=== PATIENT | female | born 2005 | race Caucasian/White ===

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

== ENCOUNTER 2024-02-17 12:58 | Emergency (ER) | payer OTHER, BC, SELFPAY ==
[2024-02-17 13:21] VITALS: BP 107/64; PULSE 95; RESP 16; TEMP 37.1; O2SAT 100
--- NOTE | 2024-02-17 13:26 | ED.URI ---
HPI - URI/Sore Throat General Chief Complaint: Upper Respiratory Infection Stated Complaint: SORE THROAT Source: patient and RN notes reviewed Mode of arrival: ambulatory Limitations: no limitations History of Present Illness HPI Narrative: Patient is a 18-year-old female who presents to the [facility] with complaints of sore throat starting yesterday. Patient states that her sore throat worsened last night. She denies associated headache, cough, fever. She reports frequent strep infections in the past. patient states that she is currently 25 weeks with her 3rd . She has history stillbirth a miscarriage. She denies any related complaints at this time. Denies vaginal bleeding or abdominal pain. Related Data Home Medications Medication Instructions Recorded Confirmed ondansetron HCl 4 mg tablet mg 11/27/23 02/13/24 progesterone micronized 200 mg mg 11/27/23 02/13/24 capsule Allergies Allergy/AdvReac Type Severity Reaction Status Date / Time No Known Allergies Allergy Verified 02/13/24 12:55 Review of Systems Review of Systems: CONSTITUTIONAL: Denies fever, chills, or sweats. EYES: Denies visual changes, redness, or discharge. ENT: Denies otalgia. Reports sore throat. CARDIOVASCULAR: Denies chest pain, palpitations, or edema. RESPIRATORY: Denies cough or dyspnea. GASTROINTESTINAL: Denies abdominal pain, nausea, vomiting, or diarrhea. GENITOURINARY: Denies dysuria or hematuria. SKIN: Denies rash or itching. MUSCULOSKELETAL: Denies back pain, joint pain, or myalgia. NEUROLOGIC: Denies headache, numbness, or weakness. Pertinent positives per HPI. ON LICENSE OF [facility] Past Medical History Medical History COVID-19 2020 History of stillbirth March 2022 Strep throat UTI (urinary tract infection) Surgical History Surgical History H/O dilation and curettage Family History Family History Mother Asthma Heart disease Grandparent Diabetes mellitus Hypertension Other No pertinent family history Social History Social History Smoking status: Former smoker Tobacco type: e-cigarettes/vaping Smoking end date: 04/02/23 Alcohol intake: never Substance use: former Substance use type: marijuana Last use: 04/21 Do You Feel Safe in your Home?: Yes Lack of Transportation: No Lack of Food: Never True Current Housing: I Have Housing Concerned About Future Housing: No Difficulty Paying Gas/Electric Bills: No Difficulty Paying for Meds: No Currently Unemployed: No Education: Don't Know Living arrangements: with family Occupation/Education: occupation 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 There is no relevant family history pertinent to the patient complaint. Exam Narrative: GENERAL: This is a well-nourished, well-developed patient, in no apparent distress. HEAD: normocephalic, atraumatic. EYES: Sclera clear/white. Vision is grossly intact. EARS: External ears normal. Hearing grossly intact. NOSE: External nose normal with no obvious nasal discharge, nares without redness, no rhinorrhea. THROAT: Mucous membranes moist. Oropharyngeal erythema without exudate or ulceration. NECK: Neck supple, non-tender without lymphadenopathy, masses or thyromegaly. CARDIOVASCULAR: Regular rate and rhythm without murmurs, gallops, or rubs. RESPIRATORY: Clear to auscultation. Breath sounds equal bilaterally. No wheezes, rales, or rhonchi. GASTROINTESTINAL: Abdomen soft, non-tender, nondistended. Bowel sounds are act
[2024-02-17 13:44] LABS: EDSTREPNEGPOS1 Negative
== END 2024-02-17 13:35 | disposition home or self-care (01) ==
PROVIDERS: Emergency Provider Nurse Practitioner; PCP Nurse Practitioner Family
DX: O99.512 Diseases of the respiratory system complicating pregnancy, second trimester (principal); Z3A.25 25 weeks gestation of pregnancy; J02.8 Acute pharyngitis due to other specified organisms; Z86.16 Personal history of COVID-19; Z87.891 Personal history of nicotine dependence
CPT/HCPCS: 87081; 87880; 99213; G0463

== ENCOUNTER 2024-05-25 08:39 | Inpatient (IN) | payer OTHER, SELFPAY ==
[2024-05-25] VITALS (188 sets, daily range): BP systolic 64–131; BP diastolic 33–105; PULSE 64–130; RESP 16; TEMP 36.6–36.8; O2SAT 83–100; BMI 30.4
[2024-05-25 09:18] LABS: Basophils Absolute Auto 0.1 K/mm3 (0.0-0.1); Basophils Percent Auto 0.5 % (0.2-1.2); Eosinophils Absolute Auto 0.1 K/mm3 (0-0.3); Eosinophils Percent Auto 0.7 % (0-4.4); Hematocrit 32.2 % (37.0-47.0); Hemoglobin 10.3 g/dL (12.0-15.0); Immature Granulocyte Absolute 0.12 K/mm3 (0.00-0.031); Immature Granulocyte Percent A 1.1 % (0-0.5); Lymphocytes Absolute Auto 2.03 K/mm3 (0.9-3.2); Lymphocytes Percent Auto 19.1 % (18.3-44.2); Mean Corpuscular Hemoglobin 25.8 pg (26-34); Mean Corpuscular Volume 80.5 fl (80-100); Mean Platelet Volume 12.2 fl (7.4-10.4); Monocytes Absolute Auto 0.7 K/mm3 (0.1-0.6); Monocytes Percent Auto 6.6 % (2.6-8.5); Neutrophils Absolute Auto 7.7 K/mm3 (1.3-6.7); Platelet Count Result 231 k/mm3 (150-375); Red Cell Distribution Width 16.1 % (11.5-14.5); White Blood Count 10.6 K/mm3 (4.5-10.0)
--- NOTE | 2024-05-25 09:23 | PM.IMHP ---
H&P: HPI History of Present Illness Date/Time: 05/25/24 09:23 Chief Complaint: Term previous intrauterine demise Narrative: this is a 18 old 3 para 0 1 1 0 whose last menstrual period was 07/25/2023, EDC is 06/01/2024, presents at 39 weeks gestation for induction of labor secondary to history of demise. She is negative for group B strep. Her last ultrasound at 37 weeks showed 8lb vertex presentation. Review of Systems Review of Systems: CONSTITUTIONAL: Denies fever, chills, or sweats. EYES: Denies visual changes, redness, or discharge. ENT: Denies otalgia. Reports sore throat. CARDIOVASCULAR: Denies chest pain, palpitations, or edema. RESPIRATORY: Denies cough or dyspnea. GASTROINTESTINAL: Denies abdominal pain, nausea, vomiting, or diarrhea. GENITOURINARY: Denies dysuria or hematuria. SKIN: Denies rash or itching. MUSCULOSKELETAL: Denies back pain, joint pain, or myalgia. NEUROLOGIC: Denies headache, numbness, or weakness. Pertinent positives per HPI. [facility] Past Medical History Medical History COVID-2020 History of stillbirth March 2022 Strep throat UTI (urinary tract infection) Surgical History Surgical History H/O dilation and curettage Family History Family History Mother Asthma Heart disease Grandparent Diabetes mellitus Hypertension Other No pertinent family history Social History Social History Smoking status: Former smoker Tobacco type: e-cigarettes/vaping Smoking end date: 04/02/23 Alcohol intake: never Substance use: never Substance use type: marijuana Last use: 04/21 Do You Feel Safe in your Home?: Yes Lack of Transportation: No Lack of Food: Never True Current Housing: I Have Housing Concerned About Future Housing: No Difficulty Paying Gas/Electric Bills: No Difficulty Paying for Meds: No Currently Unemployed: No Education: Don't Know Living arrangements: with family Occupation/Education: occupation 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 Agree to blood products: Yes Meds Home Medications and Allergies Home Medications Medication Instructions Recorded Confirmed Type vits no.126-ferrous fum 1 tablet PO DAILY 05/24/24 05/25/24 History 28 mg iron-folic acid 800 mcg tablet (Classic ) progesterone micronized 200 mg 200 mg PO DAILY 05/24/24 05/25/24 History capsule Allergies Allergy/AdvReac Type Severity Reaction Status Date / Time No Known Allergies Allergy Verified 05/24/24 14:33 Vital Signs Vital Signs - 24 hr 05/25/24 09:17 05/25/24 09:18 05/25/24 09:22 Pulse Rate 102 H Blood Pressure 114/67 Pulse Oximetry 100 100 05/25/24 09:22 Pulse Rate 102 H Blood Pressure 114/67 Pulse Oximetry Exam Const: General: cooperative, healthy appearing and comfortable Nutritional Appearance: average body habitus Orientation/consciousness: oriented to person, oriented to place and oriented to time Resp: Effort & Inspection: normal respiratory effort Cardio: Rate: regular rate Rhythm: regular rhythm Heart sounds: S1 normal heart sound present and S2 normal heart sound present GI: Inspection: normal to inspection ( Gravid soft uterus) : External Female Exam: normal external appearance Speculum Exam - Vagina: normal appearance of the vagina Speculum Exam - Cervix: normal appearance of the cervix ( cervix 2/50/2. Attempted AROM no fluid seen. heart tones reassurin) H&P: Results Labs Labs: Short CBC 05/25/24 Range/Units 08:58 WBC 10.6 H (4.5-10.0) K/mm3 Hgb 10.3 L (12.0-15.0) g/dL Hct 32.2 L (37.0-47.0) % Plt Count 231 (150-375) k/mm3 Assessment and Plan Assessment and plan (1) Term : Code(s): Z34.90 - Encounter for supervision of normal , unspecified, unspecified trimester Status: Acute Assessment and Plan: medical induction of labor. Spontaneous vaginal delivery is expected. She is an epidural candidate
--- NOTE | 2024-05-25 09:25 | LDADM ---
This patient, Lottie Peterson, was admitted to Labor/Delivery 102 on 05/25/24 at 08:39. Plans for labor, pain management and were discussed with patient. Patient/family oriented to hospital policies and general routines including ID bracelet, bed and alarms, visiting hours, pain management, procedures, bathroom and other care routines, personal items, smoking policy, room service/diet and guest tray routines, infant security routines, and visiting hours. Patient/Family are encouraged to report perceived risks to care and to ask questions if they do not understand what they are told or what they should do. See OBIX for further documentation.
[2024-05-25] MEDS: LACTATED RINGERS 1,000 ML 125 ML IV CONT ×4 (09:40→23:06)
[2024-05-25] MEDS: OXYTOCIN 30 UNITS/NS 500 ML 30 UNITS/500 ML BAG IV CONT (09:40)
[2024-05-25 10:07] LABS: HIV 1/2 Ab P24 Ag Result Negative (Negative)
[2024-05-25 10:51] LABS: Rapid Plasma Reagin Non-Reactive (NonReactive)
--- NOTE | 2024-05-25 15:09 | WPDANESEPPF ---
Anes - Initial Pre Proc Eval Procedure: labor epidural Date/Time: 05/25/24 15:09 Surgeon: Ivan Maldonado MD Pre Op Diagnosis: labor pain Pre Op Diagnosis: Induction of Labor Patient Data Age: 18 Gender: F Height: 1.6 m Weight: 78 kg Last Vital Signs Temp 36.8 C 05/25/24 14:30 Pulse 86 05/25/24 15:05 BP 97/52 L 05/25/24 15:05 Pulse Ox 99 05/25/24 15:06 O2 Del Method Room Air 05/25/24 09:23 Allergies Allergy/AdvReac Type Severity Reaction Status Date / Time No Known Allergies Allergy Verified 05/24/24 14:33 Home Medications Medication Instructions Recorded Confirmed Type vits no.126-ferrous fum 1 tablet PO DAILY 05/24/24 05/25/24 History 28 mg iron-folic acid 800 mcg tablet (Classic ) progesterone micronized 200 mg 200 mg PO DAILY 05/24/24 05/25/24 History capsule Laboratory Tests 05/25/24 08:58 WBC 10.6 H K/mm3 (4.5-10.0) RBC 4.00 L M/mm3 (4.2-5.4) Hgb 10.3 L g/dL (12.0-15.0) Hct 32.2 L % (37.0-47.0) MCV 80.5 fl (80-100) MCH 25.8 L pg (26-34) MCHC 32.0 g/dl (32-36) RDW 16.1 H % (11.5-14.5) Plt Count 231 k/mm3 (150-375) MPV 12.2 H fl (7.4-10.4) Immature Gran % (Auto) 1.1 H % (0-0.5) Neut % (Auto) 72.0 % (45.5-73.1) Lymph % (Auto) 19.1 % (18.3-44.2) [place] % (Auto) 6.6 % (2.6-8.5) Eos % (Auto) 0.7 % (0-4.4) Baso % (Auto) 0.5 % (0.2-1.2) Lymph # (Auto) 2.03 K/mm3 (0.9-3.2) [place] # (Auto) 0.7 H K/mm3 (0.1-0.6) Eos # (Auto) 0.1 K/mm3 (0-0.3) Baso # (Auto) 0.1 K/mm3 (0.0-0.1) Abs Immat Gran (auto) 0.12 H K/mm3 (0.00-0.031) Absolute Neuts (auto) 7.7 H K/mm3 (1.3-6.7) Absolute Nucleated RBC 0.000 K/mm3 (0.0-0.012) Nucleated RBC % 0.0 % (0.0-0.2) RPR Non-reactive (NonReactive) HIV 1&2 Ab/P24 Ag 4thGn Negative (Negative) Blood Type O Positive Antibody Screen Negative Patient hx anesthesia problems: none Family hx anesthesia problems: none Results Review: All pre-operative results and documents have been reviewed as part of the pre-operative evaluation. [facility] Past Medical History Medical History COVID-2020 History of stillbirth March 2022 Strep throat UTI (urinary tract infection) Surgical History Surgical History H/O dilation and curettage Family History Family History Mother Asthma Heart disease Grandparent Diabetes mellitus Hypertension Other No pertinent family history Social History Social History Smoking status: Never smoker Tobacco type: e-cigarettes/vaping Smoking end date: 04/02/23 Alcohol intake: never Substance use: never Substance use type: marijuana Last use: 04/21 Do You Feel Safe in your Home?: Yes Lack of Transportation: No Lack of Food: Never True Current Housing: I Have Housing Concerned About Future Housing: No Difficulty Paying Gas/Electric Bills: No Difficulty Paying for Meds: No Currently Unemployed: No Education: High School Diploma/GED Difficulty w/ Childcare or Family Care: No Living arrangements: with family Occupation/Education: occupation Additional occupation/education comments: Teacher at [employer] Spiritual care concerns: No Agree to blood products: Yes Anes - Eval Final PreProcedure Day of Procedure 05/25/24 15:09 Patient weight: obese ASA classification: II Anesthetic plan: proceed Anesthesia type and monitoring: regional epidural and standard monitoring Results Review: All pre-operative results and documents have been reviewed as part of the pre-operative evaluation. Informed Consent: The patient's anesthetic plan and its attendant risks and benefits were discussed with the patient/family/POA. Questions were solicited and answers provided to the satisfaction of the patient/family/POA.
[2024-05-25] MEDS: ONDANSETRON INJ 4 MG/2 ML VIAL IV PUSH (17:12)
[2024-05-26] VITALS (28 sets, daily range): BP systolic 102–156; BP diastolic 40–113; PULSE 80–174; RESP 14–18; TEMP 36.7–37.2; O2SAT 97–100
--- NOTE | 2024-05-26 00:33 | PM.OBPRVD ---
OB - Vaginal Delivery Note Procedure Delivery date: 05/26/24 Events: Elective Induction of Labor Induction method: AROM Delivery augmentation: Pitocin Delivery monitor: Internal FHT and Internal Uterine Route of delivery: Episiotomy description: None Laceration Description: None Quantitative Blood Loss (ml): 61 Anesthesia type: Epidural Disposition: Floor Complications: No immediate complications Narrative: The patient was admitted for induction of labor. Artificial rupture membranes performed she had IUPC placed and required amnio infusion secondary to recurrent variables. When she was complete she pushed delivered the head spontaneously in the SLAVA position nuchal cord checked was noted be loose x1 around the occiput anterior posterior shoulder delivered spontaneously cord was noted to be wrapped around the right leg and ankle and this was relieved. Cord clamped x2 cut passed off the warmer given Apgars of 8 and 9 at 1 and 5minutes respectively. Twenty-two Pitocin placed IV after the placenta spontaneously delivered. The vagina was inspected noted be free of tears or lacerations blood loss estimated 61cc. All sponge, needle, instrument counts were correct. [place] Baby Date of : 05/26/24 Time of : 00:21 gender: Male presentation: vertex position: Right Occiput Anterior Placenta delivery description: Spontaneous Cord Vessel Description: 3 Vessels, Nuchal Cord, Loose and Reduced score one minute: 8 score five minutes: 9
--- NOTE | 2024-05-26 00:37 | P.DS_ITS ---
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 She remained afebrile. She was up, voiding without difficulty, eating regular diet, ambulating, and generally without complaints. Time Spent with Patient Time attestation: Total time spent providing and/or coordinating discharge services: Exam Const: General: cooperative, healthy appearing and comfortable Nutritional Appearance: average body habitus Orientation/consciousness: oriented to person, oriented to place and oriented to time HENMT: Head: normal to inspection Resp: Effort & Inspection: normal respiratory effort Cardio: Rate: regular rate Rhythm: regular rhythm Heart sounds: S1 normal heart sound present and S2 normal heart sound present GI: Inspection: normal to inspection ( Fundus firm below the umbilicus) DS: Data Data Completed and Pending Labs on day of discharge: Labs from last 24 hours 05/25/24 08:58 WBC 10.6 H RBC 4.00 L Hgb 10.3 L Hct 32.2 L MCV 80.5 MCH 25.8 L MCHC 32.0 RDW 16.1 H Plt Count 231 MPV 12.2 H Immature Gran % (Auto) 1.1 H Neut % (Auto) 72.0 Lymph % (Auto) 19.1 [place] % (Auto) 6.6 Eos % (Auto) 0.7 Baso % (Auto) 0.5 Lymph # (Auto) 2.03 [place] # (Auto) 0.7 H Eos # (Auto) 0.1 Baso # (Auto) 0.1 Abs Immat Gran (auto) 0.12 H Absolute Neuts (auto) 7.7 H Absolute Nucleated RBC 0.000 Nucleated RBC % 0.0 RPR Non-reactive HIV 1&2 Ab/P24 Ag 4thGn Negative Blood Type O Positive Antibody Screen Negative Discharge Plan Discharge Attending physician on discharge: Ivan Bonilla Discharging Clinician: Ivan Bonilla Patient Disposition: Home, Self-Care Activity: may shower, no straining and pelvic rest Diet: heart healthy Wound Care Instructions: follow printed instructions Discharge Instructions: Education: Mom and Baby Guide Given to: Mother Follow-Up: Call your delivering provider's office for an appointment to be seen in: 4-6 weeks Mom and baby should come to the [facility] for the follow-up appointment. Appointment Date/Time: May 29, 2024 at 9:00 am What to expect at your follow-up visit: Physical Assessment Call [phone] if you are unable to keep your appointment time. BREAST CARE: * Wear a snug supportive bra. * For engorgement discomfort: Breast Feeding: * Apply warm moist washcloths * Express milk as needed to relieve engorgement * Wear loose clothing Bottle Feeding: * May apply ice packs * For sore nipples: * Identify correct latch-on * Apply warm moist washcloths before and after nursing * Air dry nipples after nursing * May apply Lansinoh cream to nipples EPISIOTOMY/PERINEAL CARE: * Until bleeding stops, use your anais bottle after urinating * Change your pad frequently throughout the day * You may take sitz baths several times a day (fill your bathtub with warm water and soak for 20 minutes.) Do NOT bathe in the water * No tub baths until seen by your physician - You may shower ACTIVITY: * Rest as much as possible. * Do not exercise or lift anything heavier than your baby (such as laundry or other children.) * Avoid stairs or driving as much as possible. * Do not put anything into the vagina. No douching, tampons, or sexual activity until seen by physician. NOTIFY PHYSICIAN IF YOU HAVE ANY QUESTIONS OR IF ANY OF THE FOLLOWING SYMPTOMS OCCUR: * If your vaginal area becomes red, swollen, or more painful than what you have experienced in the hospital. * If your vaginal bleeding becomes foul smelling. * If your vaginal bleeding becomes more heavy than a period or if your bleeding changes from pink to bright red. However, you may pass an occasional walnut- sized clot once or twice for the first week . * If you experience a sharp, shooting pain in you calves. * If you discover a hard, reddened area on your breast or if you experience flu- like symptoms. DIET: * Eat regular, well-balanced meals. * Drink plenty of fluids daily. If , drink to thirst. Stand Alone Forms: General Discharge Information Follow-up/Referrals: Ivan Bonilla MD [Physician] - Discharge Medications: Continued progesterone micronized 200 mg capsule 200 mg PO DAILY Discontinued Classic 28 mg iron- 800 mcg Tablet 1 tablet PO DAILY Date of admission: 05/25/24 08:39 Primary Care Provider: UNKNOWN,DOCTOR Admitting Provider: Ivan Bonilla Attending physician on admission: Ivan Bonilla Condition: Stable
[2024-05-26] MEDS: OXYTOCIN 30 UNITS/NS 500 ML 30 UNITS/500 ML BAG 125 UNITS IV CONT (01:00)
[2024-05-26] MEDS: WITCH HAZEL 40 PADS 1 PAD TOPICAL (02:33)
[2024-05-26] MEDS: ACETAMINOPHEN 325 MG TABLET 650 MG PO (02:33)
[2024-05-26] MEDS: BENZOCAINE 20% AER SPR (*SP) 56 GM CAN 1 SPRAY TOPICAL (02:33)
[2024-05-26] MEDS: IBUPROFEN 600 MG TABLET PO ×2 (02:34→18:46)
[2024-05-26] MEDS: DOCUSATE SODIUM 100 MG CAPSULE PO ×2 (02:34→09:11)
--- NOTE | 2024-05-26 02:55 | OBPPTRN ---
Patient transferred to post room #288 via wheelchair. Support person present. Oriented to unit, room, information board, rooming in, admission packet and security measures. Patient verbalizes understanding.
[2024-05-26] MEDS: POLYSACCHARIDE IRON COMPLEX 150 MG CAPSULE PO (09:11)
[2024-05-26] MEDS: MULTIVIT/MIN/PREN/FOL AC/IRON TABLET 1 TAB PO (09:11)
[2024-05-27] MEDS: IBUPROFEN 600 MG TABLET PO ×2 (00:14→06:10)
[2024-05-27] MEDS: ACETAMINOPHEN 325 MG TABLET 650 MG PO ×2 (00:14→06:10)
--- NOTE | 2024-05-27 00:21 | PC.NURSE ---
224- Pt states that she prefers to bottle fed infant, states is not for me, my sisters can do it for their babies. Offered benefits of BF and bottle feeding, however pt prefers formula at this time. Similac bottles and nipples given, instructions for feedings as well
[2024-05-27 05:14] LABS: Hematocrit 26.2 % (37.0-47.0)
--- NOTE | 2024-05-27 05:49 | PM.OBPNVD ---
OB - PN: Subj Subjective Date/time seen: 05/27/24 05:49 Patient comments: no complaints and pain well controlled baby status: doing well OB - PN: Obj Data Labs 05/27/24 04:35 Labs: Laboratory Results - last 24 hr 05/27/24 04:35 Hgb 8.0 L Hct 26.2 L OB - PN A/P Plan day: 1 Plan: routine care Time Spent With Patient Time: Total time spent is greater than 50% in coordination of care (as documented) at patient's floor/unit and/or counseling patient: Time with patient: less than 15 minutes Exam Const: General: cooperative, healthy appearing and comfortable Nutritional Appearance: average body habitus Orientation/consciousness: oriented to person, oriented to place and oriented to time Resp: Effort & Inspection: normal respiratory effort Cardio: Rate: regular rate Rhythm: regular rhythm Heart sounds: S1 normal heart sound present and S2 normal heart sound present GI: Inspection: normal to inspection
[2024-05-27 08:40] VITALS: BP 99/58; PULSE 67; RESP 16; TEMP 36.6; O2SAT 100
[2024-05-27] MEDS: MULTIVIT/MIN/PREN/FOL AC/IRON TABLET 1 TAB PO (08:51)
[2024-05-27] MEDS: POLYSACCHARIDE IRON COMPLEX 150 MG CAPSULE PO (08:51)
[2024-05-27] MEDS: DOCUSATE SODIUM 100 MG CAPSULE PO (08:51)
--- NOTE | 2024-05-27 09:53 | WPDANLDPN2 ---
Anes-Prog Note L&D Date/Time: 05/27/24 09:53 Comfortable throughout: labor and delivery Neuraxial method: epidural Epidural/Spinal procedure site: clean & non-tender Neuro status: Neuro function grossly intact. Cardiovascular status: normal Respiratory status: normal Airway patency: baseline Mental status: baseline Post-Op hydration status: normal Vital Signs: Last Vital Signs Temp 36.6 C 05/27/24 08:40 Pulse 67 05/27/24 08:40 Resp 16 05/27/24 08:40 BP 99/58 L 05/27/24 08:40 Pulse Ox 100 05/27/24 08:40 O2 Del Method Room Air 05/26/24 19:45 Pain score (VAS): 3/10 Post-procedural complaints: none Patient feedback: Patient satisfied with anesthetic care.
[2024-05-29 09:26] VITALS: BP 129/83; PULSE 91; RESP 18; TEMP 36.8; O2SAT 99
== END 2024-05-27 10:55 | disposition home or self-care (01) | DRG 560 ==
LOC: ANHLDR 05-26 00:40 → ANHOB2 05-26 03:36
PROVIDERS: Admitting Provider Obstetrics & Gynecology; Visit Provider Obstetrics & Gynecology
DX: O99.892 Other specified diseases and conditions complicating childbirth (principal); Z37.0 Single live birth; Z3A.39 39 weeks gestation of pregnancy; Z87.59 Personal history of other complications of pregnancy, childbirth and the puerperium; O69.81X0 Labor and delivery complicated by cord around neck, without compression, not applicable or unspecified; O69.82X0 Labor and delivery complicated by other cord entanglement, without compression, not applicable or unspecified
CPT/HCPCS: 36415; 85014; 85018; 85025; 86592; 86703; 86850; 86900; 86901; A9270; G0432; J2405; J2590; J2795; J7120